=== PATIENT | female | born 1970 | race Caucasian/White ===

== ENCOUNTER 2016-07-10 10:25 | Emergency (ER) | payer OTHER ==
[~2016-07-10] VITALS: Ht 152.4 cm; Wt 100.0 kg
[~2016-07-10 10:25] MED LIST: ASPI-556 PO; GABA-531 PO; GLIM4 PO; LISI-662 PO; METF500T4 PO; METO-325 PO; NITR100C9 PO
[2016-07-10 10:46] LABS: GLUCOSE,POINT OF CARE 198 MG/DL (70-110)
[2016-07-10 11:53] LABS: BASOPHILS % (AUTO) 0.4 % (0.0-2.0); EOSINOPHILS % (AUTO) 0.8 % (1.0-6.0); HEMATOCRIT 43.6 % (36-46); HEMOGLOBIN 14.4 g/dL (12.0-16.0); LYMPHOCYTES # (AUTO) 3.2 K/uL (1.0-4.8); LYMPHOCYTES % (AUTO) 27.4 % (22.0-44.0); MEAN CORPUSCULAR HEMOGLOBIN 28.3 pg (26.0-34.0); MEAN CORPUSCULAR HGB CONC 32.9 G/dL (31.0-37.0); MEAN CORPUSCULAR VOLUME 86 fL (80-100); MONOCYTES # (AUTO) 0.8 K/uL (0.1-1.0); MONOCYTES % (AUTO) 7.2 % (2.0-9.0); NEUTROPHILS # (AUTO) 7.5 K/uL (1.8-7.7); NEUTROPHILS % (AUTO) 64.2 % (40.0-70.0); PLATELET COUNT (AUTO) 409 K/uL (150-450); RED BLOOD CELL COUNT(AUTO) 5.08 MIL/uL (4.00-5.20); RED CELL DISTRIBUTION WIDTH 15.5 % (11.5-14.5); WHITE BLOOD COUNT (AUTO) 11.6 K/uL (4.5-11.0)
[2016-07-10 12:03] LABS: ANION GAP 9 mmol/L (8-16); CALCIUM, TOTAL 9.2 mg/dL (8.8-10.5); CARBON DIOXIDE 26 mmol/L (22-29); CHLORIDE 100 mmol/L (98-107); CREATININE 0.56 mg/dL (0.60-1.30); GLOMERULAR FILTR. RATE CALC > 60 mL/min (>60); SODIUM SERUM 135 mmol/L (136-145); UREA NITROGEN, BLOOD 17 mg/dL (7-18)
[2016-07-10 12:10] LABS: ALANINE AMINOTRANSFERASE 21 U/L (12-78); ALBUMIN 3.2 g/dL (3.4-5.0); AMYLASE 40 U/L (25-115); ASPARTATE AMINOTRANSFERASE 14 U/L (15-37); BILIRUBIN,TOTAL 0.5 mg/dL (0.1-1.0); TOTAL PROTEIN, SERUM 7.5 g/dL (6.4-8.2)
[2016-07-10] MEDS ORDERED: OxyCODONE HCL/ACETAMINOPHEN 5-325 MG TABLET PO ONE ×2 (14:00→18:00)
[2016-07-10] MEDS ORDERED: KETOROLAC TROMETHAMINE 30 MG/ML VIAL IVP ONE (14:00)
[2016-07-10] MEDS ORDERED: SODIUM CHLORIDE 0.9% 1,000 ML IV ONE (15:15)
[2016-07-10] MEDS ORDERED: ONDANSETRON HCL 4 MG/2 ML VIAL IVP ONE (15:15)
[2016-07-10 16:53] VITALS: BP 138/82
[2016-07-10 17:10] LABS: APPEARANCE,URINE CLOUDY (CLEAR); GLUCOSE, URINE (UA) NEGATIVE (NEGATIVE); KETONES,URINE TRACE mg/dL (NEGATIVE); LEUKOCYTE ESTERASE ,URINE MODERATE (NEGATIVE); OCCULT BLOOD,URINE MODERATE (NEGATIVE); PROTEIN,URINE TRACE (NEGATIVE)
[2016-07-10 17:13] LABS: ADD UA MICROSCOPIC YES
[2016-07-10 17:24] LABS: SQUAMOUS EPITHELIAL CELL,UR Many /LPF (None Seen); WBC,URINE 26-50 /HPF (0-5)
== END 2016-07-10 18:08 | disposition home or self-care (01) ==
LOC: EMS 10:27
DX: N39.0 Urinary tract infection, site not specified (principal); N80.0 Endometriosis of uterus; E11.9 Type 2 diabetes mellitus without complications; I10 Essential (primary) hypertension; F17.210 Nicotine dependence, cigarettes, uncomplicated; Z79.82 Long term (current) use of aspirin
CPT/HCPCS: 36415; 76856; 80053; 81001; 82150; 82962; 83690; 84703; 85025; 87077; 87086; 87186; 96361; 96374; 96375; 99285; J1885; J2405; J7030

== ENCOUNTER 2016-08-06 10:30 | Inpatient (IN) | payer OTHER ==
[~2016-08-06] VITALS: Ht 154.9 cm; Wt 112.9 kg
[~2016-08-06 10:30] MED LIST changes: -NITR100C9 PO
[2016-08-06] MEDS ORDERED: DEXAMETHASONE SOD PHOS 4 MG/ML 5 ML VIAL IM ONE (14:30)
[2016-08-06] MEDS ORDERED: INSULIN REGULAR, HUMAN 100 UNITS/ML IVP ONE (14:30)
[2016-08-06] MEDS ORDERED: IPRATROPIUM BROMIDE 0.5 MG/2.5 ML NEB SOLUTION NEB ONE (14:30)
[2016-08-06] MEDS ORDERED: ALBUTEROL SULFATE 5 MG/ML 20 ML NEB SOLN [BULK] NEB ONE (14:30)
[2016-08-06] MEDS ORDERED: SODIUM CHLORIDE 0.9% 1,000 ML IV ONE ×2 (14:30→18:00)
[2016-08-06] MEDS ORDERED: ONDANSETRON HCL 4 MG/2 ML VIAL IVP ONE (14:30)
[2016-08-06] MEDS ORDERED: HYDROCODONE/ACETAMINOPHEN 5-325 MG TABLET PO ONE (14:30)
[2016-08-06] MEDS ORDERED: DEXAMETHASONE SOD PHOS 4 MG/ML 5 ML VIAL IVP ONE (14:30)
[2016-08-06 15:59] LABS: BASOPHILS % (AUTO) 0.4 % (0.0-2.0); HEMATOCRIT 42.8 % (36-46); LYMPHOCYTES # (AUTO) 3.4 K/uL (1.0-4.8); LYMPHOCYTES % (AUTO) 29.6 % (22.0-44.0); MEAN CORPUSCULAR HEMOGLOBIN 28.4 pg (26.0-34.0); MEAN CORPUSCULAR HGB CONC 32.6 G/dL (31.0-37.0); MEAN CORPUSCULAR VOLUME 87 fL (80-100); MONOCYTES % (AUTO) 8.4 % (2.0-9.0); NEUTROPHILS # (AUTO) 6.8 K/uL (1.8-7.7); NEUTROPHILS % (AUTO) 59.6 % (40.0-70.0); PLATELET COUNT (AUTO) 369 K/uL (150-450); RED BLOOD CELL COUNT(AUTO) 4.92 MIL/uL (4.00-5.20); RED CELL DISTRIBUTION WIDTH 15.9 % (11.5-14.5); WHITE BLOOD COUNT (AUTO) 11.4 K/uL (4.5-11.0)
[2016-08-06] MEDS ORDERED: CefTRIAXone 1 GM/DEXTROSE 50 ML IV ONE (16:15)
[2016-08-06] MEDS ORDERED: AZITHROMYCIN 500 MG/NS 250 ML IV ONE (16:15)
[2016-08-06] MEDS ORDERED: MORPHINE SULFATE 4 MG/ML SYRINGE IVP ONE ×2 (16:15→21:00)
[2016-08-06 16:24] LABS: ANION GAP 12 mmol/L (8-16); CALCIUM, TOTAL 8.8 mg/dL (8.8-10.5); CARBON DIOXIDE 25 mmol/L (22-29); CHLORIDE 100 mmol/L (98-107); CREATININE 0.67 mg/dL (0.60-1.30); GLOMERULAR FILTR. RATE CALC > 60 mL/min (>60); POTASSIUM 4.1 mmol/L (3.5-5.1); SODIUM SERUM 137 mmol/L (136-145); UREA NITROGEN, BLOOD 13 mg/dL (7-18)
[2016-08-06 16:26] LABS: GLUCOSE COMMENT 1 Doctor Notified; GLUCOSE,POINT OF CARE 174 MG/DL (70-110)
[2016-08-06 16:27] LABS: APPEARANCE,URINE TURBID (CLEAR); GLUCOSE, URINE (UA) >=1000 mg/dL (NEGATIVE); KETONES,URINE NEGATIVE (NEGATIVE); LEUKOCYTE ESTERASE ,URINE NEGATIVE (NEGATIVE); OCCULT BLOOD,URINE LARGE (NEGATIVE); PH,URINE 5.5 (5.0-8.0); PROTEIN,URINE POS 1+ (NEGATIVE)
[2016-08-06 16:29] LABS: ADD UA MICROSCOPIC YES
[2016-08-06 16:30] LABS: ALANINE AMINOTRANSFERASE 20 U/L (12-78); ALBUMIN 3.1 g/dL (3.4-5.0); ASPARTATE AMINOTRANSFERASE 8 U/L (15-37); BILIRUBIN,TOTAL 0.3 mg/dL (0.1-1.0); TOTAL PROTEIN, SERUM 7.3 g/dL (6.4-8.2)
[2016-08-06 16:35] LABS: SQUAMOUS EPITHELIAL CELL,UR Few /LPF (None Seen)
[2016-08-06 16:37] LABS: RBC,URINE Full Field /HPF (0-2)
[2016-08-06 16:38] LABS: INFLUENZA TYPE B NEGATIVE FOR TYPE B (NEGATIVE)
[2016-08-06] MEDS ORDERED: 0.9% SODIUM CHLORIDE 10 ML SYRINGE IVP PRN (18:00)
[2016-08-06] MEDS ORDERED: ONDANSETRON HCL 4 MG/2 ML VIAL IVP PRN (18:00)
[2016-08-06] MEDS ORDERED: MORPHINE SULFATE 4 MG/ML SYRINGE IVP PRN (18:00)
[2016-08-06] MEDS ORDERED: ACETAMINOPHEN 325 MG TABLET PO PRN (18:00)
[2016-08-07 00:10] VITALS: BP 136/87
[2016-08-07] MEDS ORDERED: PNEUMOCOCCAL VACCINE POLYVALENT 0.5 ML VIAL [PPSV23] IM ONE (01:00)
[2016-08-07] MEDS ORDERED: DEXTROSE 50%-WATER 25 GM/50 ML SYRINGE IVP PRN ×2 (02:00→04:15)
[2016-08-07] MEDS: SODIUM CHLORIDE 0.9% 1,000 ML IV SCH ×2 (04:08→11:56)
[2016-08-07 04:22] VITALS: BP 142/94
[2016-08-07] MEDS: INSULIN ASPART 100 UNITS/ML SQ PRN ×4 (06:20→20:17)
[2016-08-07 06:36] LABS: GLUCOSE COMMENT 1 Received Meds; GLUCOSE,POINT OF CARE 379 MG/DL (70-110)
[2016-08-07 07:43] VITALS: BP 135/84
[2016-08-07] MEDS: LISINOPRIL 20 MG TABLET PO SCH (09:00)
[2016-08-07] MEDS: GABAPENTIN 300 MG CAPSULE PO SCH ×3 (09:00→20:14)
[2016-08-07] MEDS: ASPIRIN 81 MG EC TABLET PO SCH (09:00)
[2016-08-07] MEDS: METOPROLOL SUCCINATE 50 MG ER TABLET PO SCH (09:00)
[2016-08-07 11:37] VITALS: BP 147/84
[2016-08-07 11:57] LABS: GLUCOSE,POINT OF CARE 298 MG/DL (70-110)
[2016-08-07] MEDS: CefTRIAXone 1 GM/DEXTROSE 50 ML IV SCH (15:42)
[2016-08-07] MEDS: AZITHROMYCIN 500 MG/NS 250 ML IV SCH (15:43)
[2016-08-07 15:45] VITALS: BP 129/83
[2016-08-07 18:07] LABS: GLUCOSE COMMENT 1 Received Meds; GLUCOSE,POINT OF CARE 296 MG/DL (70-110)
[2016-08-07 19:46] VITALS: BP 140/98
[2016-08-07 21:57] LABS: GLUCOSE COMMENT 1 Received Meds; GLUCOSE,POINT OF CARE 303 MG/DL (70-110)
[2016-08-08 00:09] VITALS: BP 138/96
[2016-08-08 04:52] VITALS: BP 128/88
[2016-08-08] MEDS: SODIUM CHLORIDE 0.9% 1,000 ML IV SCH ×2 (05:26→09:30)
[2016-08-08] MEDS: INSULIN ASPART 100 UNITS/ML SQ PRN ×4 (05:36→20:29)
[2016-08-08] MEDS: ACETAMINOPHEN 325 MG TABLET PO PRN ×3 (06:01→19:41)
[2016-08-08 07:43] VITALS: BP 100/70
[2016-08-08 08:01] LABS: GLUCOSE COMMENT 1 Received Meds; GLUCOSE,POINT OF CARE 255 MG/DL (70-110)
[2016-08-08] MEDS: METOPROLOL SUCCINATE 50 MG ER TABLET PO SCH (09:29)
[2016-08-08] MEDS: GABAPENTIN 300 MG CAPSULE PO SCH ×3 (09:29→20:28)
[2016-08-08] MEDS: ASPIRIN 81 MG EC TABLET PO SCH (09:29)
[2016-08-08] MEDS: LISINOPRIL 20 MG TABLET PO SCH (09:29)
[2016-08-08 11:59] LABS: GLUCOSE COMMENT 1 Received Meds; GLUCOSE,POINT OF CARE 278 MG/DL (70-110)
[2016-08-08 13:03] VITALS: BP 152/96
[2016-08-08 16:30] VITALS: BP 149/94
[2016-08-08] MEDS: CefTRIAXone 1 GM/DEXTROSE 50 ML IV SCH (16:53)
[2016-08-08] MEDS: AZITHROMYCIN 500 MG/NS 250 ML IV SCH (16:53)
[2016-08-08 17:13] LABS: GLUCOSE COMMENT 1 Received Meds; GLUCOSE,POINT OF CARE 240 MG/DL (70-110)
[2016-08-08 20:04] VITALS: BP 124/77
[2016-08-08] MEDS ORDERED: OxyCODONE HCL/ACETAMINOPHEN 5-325 MG TABLET PO PRN (20:15)
[2016-08-08 21:21] LABS: GLUCOSE COMMENT 1 Received Meds; GLUCOSE,POINT OF CARE 268 MG/DL (70-110)
[2016-08-09 00:18] VITALS: BP 129/75
[2016-08-09] MEDS: SODIUM CHLORIDE 0.9% 1,000 ML IV SCH (02:16)
[2016-08-09 05:13] VITALS: BP 139/84
[2016-08-09] MEDS: INSULIN ASPART 100 UNITS/ML SQ PRN ×2 (05:37→12:28)
[2016-08-09 06:31] LABS: GLUCOSE COMMENT 1 Received Meds; GLUCOSE,POINT OF CARE 262 MG/DL (70-110)
[2016-08-09 07:55] VITALS: BP 137/74
[2016-08-09] MEDS: LISINOPRIL 20 MG TABLET PO SCH (09:30)
[2016-08-09] MEDS: GABAPENTIN 300 MG CAPSULE PO SCH (09:30)
[2016-08-09] MEDS: ASPIRIN 81 MG EC TABLET PO SCH (09:30)
[2016-08-09] MEDS: METOPROLOL SUCCINATE 50 MG ER TABLET PO SCH (09:31)
[2016-08-09 12:17] LABS: GLUCOSE,POINT OF CARE 269 MG/DL (70-110)
[2016-08-09] MEDS ORDERED: CEFO1I IM (13:37)
== END 2016-08-09 14:30 | disposition home or self-care (01) | DRG 871 ==
LOC: EMS 10:32 → 6N 22:00
PROVIDERS: ADMIT Internal Medicine; ATTEND Internal Medicine
PROC: 3E0234Z Introduction of Serum, Toxoid and Vaccine into Muscle, Percutaneous Approach (ICD-10-PCS; principal; 2016-08-07)
DX: A41.9 Sepsis, unspecified organism (principal); J18.9 Pneumonia, unspecified organism; E43 Unspecified severe protein-calorie malnutrition; N39.0 Urinary tract infection, site not specified; Z68.42 Body mass index [BMI] 45.0-49.9, adult; N20.0 Calculus of kidney; E66.9 Obesity, unspecified; E11.42 Type 2 diabetes mellitus with diabetic polyneuropathy; R31.9 Hematuria, unspecified; E11.65 Type 2 diabetes mellitus with hyperglycemia; B96.89 Other specified bacterial agents as the cause of diseases classified elsewhere; F17.210 Nicotine dependence, cigarettes, uncomplicated; E88.09 Other disorders of plasma-protein metabolism, not elsewhere classified; I10 Essential (primary) hypertension; Z79.84 Long term (current) use of oral hypoglycemic drugs; Z87.442 Personal history of urinary calculi; Z79.82 Long term (current) use of aspirin; Z79.899 Other long term (current) drug therapy; Z87.440 Personal history of urinary (tract) infections; Z82.49 Family history of ischemic heart disease and other diseases of the circulatory system; Z83.3 Family history of diabetes mellitus; Z71.6 Tobacco abuse counseling; Z23 Encounter for immunization
CPT/HCPCS: 74176; 82948; 82962; 87040; 87086; 87804; 90471; 94644; 96365; 96368; 96375; 96376; 99285; 99406; J0456; J0696; J1100; J1815; J2270; J2405; J7030

== ENCOUNTER 2017-05-07 21:19 | Emergency (ER) | payer SELFPAY ==
[~2017-05-07] VITALS: Ht 152.4 cm; Wt 102.5 kg
[~2017-05-07 21:19] MED LIST changes: +CEFO1I IM; -METO-325 PO; +METO-558 PO
[2017-05-07 21:48] LABS: GLUCOSE,POINT OF CARE 257 MG/DL (70-110)
[2017-05-07] MEDS ORDERED: CEPHALEXIN MONOHYDRATE 500 MG CAPSULE PO ONE (23:30)
[2017-05-07] MEDS ORDERED: SULFAMETHOX/TRIMETH DS 800-160 MG/TABLET PO ONE (23:30)
[2017-05-07] MEDS ORDERED: LIDOCAINE HCL 1% 10 ML VIAL INJ ONE (23:30)
[2017-05-08] VITALS: BP 131/82
== END 2017-05-08 00:24 | disposition home or self-care (01) ==
LOC: EMS 21:22
DX: L02.31 Cutaneous abscess of buttock (principal); E11.9 Type 2 diabetes mellitus without complications; I10 Essential (primary) hypertension; F17.210 Nicotine dependence, cigarettes, uncomplicated
CPT/HCPCS: 10060; 82962; 99283; J3490

== ENCOUNTER 2020-09-20 15:50 | Inpatient (IN) | payer OTHER ==
[~2020-09-20] VITALS: Ht 165.1 cm; Wt 130.7 kg
[~2020-09-20 15:50] MED LIST changes: -CEFO1I IM; +GABA-1181 PO; -GABA-531 PO; -LISI-662 PO; +LISI-894 PO; +METF-960 PO; -METF500T4 PO
[2020-09-20] MEDS ORDERED: INSU100V SQ (16:00)
[2020-09-20] MEDS ORDERED: LISI-894 PO (16:00)
[2020-09-20] MEDS ORDERED: DULA0.75 SQ (16:00)
[2020-09-20] MEDS ORDERED: GABA-1201 PO (16:00)
[2020-09-20] MEDS ORDERED: INSLAN SQ (16:00)
[2020-09-20] MEDS ORDERED: ATOR40TA28 PO (16:00)
[2020-09-20 17:44] LABS: BASOPHILS % (AUTO) 0.3 % (0.0-2.0); EOSINOPHILS % (AUTO) 0.7 % (1.0-6.0); HEMATOCRIT 42.1 % (36-46); HEMOGLOBIN 13.5 g/dL (12.0-16.0); LYMPHOCYTES # (AUTO) 1.9 K/uL (1.0-4.8); LYMPHOCYTES % (AUTO) 24.1 % (22.0-44.0); MEAN CORPUSCULAR HEMOGLOBIN 25.9 pg (26.0-34.0); MEAN CORPUSCULAR HGB CONC 32.2 G/dL (31.0-37.0); MEAN CORPUSCULAR VOLUME 81 fL (80-100); MONOCYTES # (AUTO) 0.7 K/uL (0.1-1.0); MONOCYTES % (AUTO) 8.6 % (2.0-9.0); NEUTROPHILS # (AUTO) 5.2 K/uL (1.8-7.7); NEUTROPHILS % (AUTO) 66.3 % (40.0-70.0); PLATELET COUNT (AUTO) 344 K/uL (150-450); RED BLOOD CELL COUNT(AUTO) 5.22 MIL/uL (4.00-5.20); RED CELL DISTRIBUTION WIDTH 18.2 % (11.5-14.5)
[2020-09-20 18:02] LABS: ALANINE AMINOTRANSFERASE 23 U/L (12-78); ALBUMIN 2.9 g/dL (3.4-5.0); ALKALINE PHOSPHATASE 113 U/L (46-116); ASPARTATE AMINOTRANSFERASE 13 U/L (15-37); BILIRUBIN,TOTAL 0.3 mg/dL (0.1-1.0); CALCIUM, TOTAL 9.2 mg/dL (8.8-10.5); GLOMERULAR FILTR. RATE CALC 58 mL/min (>60); GLUCOSE,RANDOM 399 mg/dL (70-110); LIPASE 481 U/L (73-393); TOTAL PROTEIN, SERUM 7.3 g/dL (6.4-8.2); UREA NITROGEN, BLOOD 17 mg/dL (7-18)
[2020-09-20 18:19] LABS: ACETONE,BLOOD NEGATIVE (NEGATIVE); ANION GAP 10 mmol/L (8-16); CARBON DIOXIDE 24 mmol/L (22-29); CHLORIDE 100 mmol/L (98-107); POTASSIUM 4.1 mmol/L (3.5-5.1); SODIUM SERUM 134 mmol/L (136-145)
[2020-09-20 18:23] LABS: LACTIC ACID 2.1 mmol/L (0.4-2.0)
[2020-09-20] MEDS ORDERED: KETOROLAC TROMETHAMINE 30 MG/ML VIAL IVP ONE (19:00)
[2020-09-20] MEDS ORDERED: SODIUM CHLORIDE 0.9% 1,000 ML IV ONE ×2 (19:00→20:30)
[2020-09-20] MEDS ORDERED: HYDROmorphone 2 MG/ML VIAL IVP ONE (19:00)
[2020-09-20] MEDS ORDERED: ONDANSETRON HCL 4 MG/2 ML VIAL IVP ONE (19:00)
[2020-09-20] MEDS ORDERED: SODIUM CHLORIDE 0.9% 2,000 ML IV ONE (20:30)
[2020-09-20] MEDS ORDERED: CefTRIAXone 1 GM/DEXTROSE 50 ML IV SCH (20:30)
[2020-09-20] MEDS ORDERED: DEXTROSE 50%-WATER 25 GM/50 ML SYRINGE IVP PRN (20:30)
[2020-09-20] MEDS ORDERED: INSULIN GLARGINE,HUM.REC.ANLOG 100 UNITS/ML SQ SCH (21:00)
[2020-09-20] MEDS: PIPERACILLIN/TAZO 3.375 GM/D5W 50 ML IV SCH (21:14)
[2020-09-20 21:26] LABS: COVID AG,FIA SOURCE NASOPHARYNGEAL
[2020-09-20 21:39] LABS: CHOL/HDL RATIO 4.5 (3.9-5.7)
[2020-09-20] MEDS: MORPHINE SULFATE 2 MG/ML SYRINGE IVP PRN (21:50)
[2020-09-20] MEDS: RINGERS SOLUTION,LACTATED 1,000 ML IV SCH (22:04)
[2020-09-20 22:28] LABS: APPEARANCE,URINE CLOUDY (CLEAR); BILIRUBIN,URINE NEGATIVE (NEGATIVE); GLUCOSE, URINE (UA) >=1000 mg/dL (NEGATIVE); KETONES,URINE NEGATIVE (NEGATIVE); LEUKOCYTE ESTERASE ,URINE TRACE (NEGATIVE); NITRATE,URINE POSITIVE (NEGATIVE); OCCULT BLOOD,URINE TRACE (NEGATIVE); PROTEIN,URINE POS 1+ (NEGATIVE)
[2020-09-20 22:52] LABS: RBC,URINE 0-2 /HPF (0-2); WBC,URINE 26-50 /HPF (0-5)
[2020-09-20 22:53] LABS: BACTERIA,URINE Many /HPF (None Seen)
[2020-09-20 23:30] VITALS: BP 100/57
[2020-09-20] MEDS: HEPARIN SODIUM,PORCINE 5,000 UNITS/ML VIAL SQ SCH (23:40)
[2020-09-20] MEDS: GABAPENTIN 400 MG CAPSULE PO SCH (23:40)
[2020-09-21 02:10] LABS: GLUCOMETER DEV NAME(LOC) 5S.1; GLUCOSE,POINT OF CARE 192 MG/DL (70-110)
[2020-09-21] MEDS ORDERED: SODIUM CHLORIDE 0.9% 250 ML IV ONE (03:44)
[2020-09-21] MEDS: PIPERACILLIN/TAZO 3.375 GM/D5W 50 ML IV SCH ×4 (03:48→21:45)
[2020-09-21 04:03] VITALS: BP 129/70
[2020-09-21] MEDS: MORPHINE SULFATE 2 MG/ML SYRINGE IVP PRN ×3 (04:12→15:40)
[2020-09-21] MEDS: INSULIN LISPRO 100 UNITS/ML SQ PRN ×4 (05:51→21:46)
[2020-09-21 07:55] VITALS: BP 101/67
[2020-09-21] MEDS: ATORVASTATIN CALCIUM 40 MG TABLET PO SCH (07:55)
[2020-09-21] MEDS: HEPARIN SODIUM,PORCINE 5,000 UNITS/ML VIAL SQ SCH ×2 (07:55→15:30)
[2020-09-21] MEDS: GABAPENTIN 400 MG CAPSULE PO SCH ×3 (07:55→21:45)
[2020-09-21] MEDS: RINGERS SOLUTION,LACTATED 1,000 ML IV SCH ×2 (11:12→22:03)
[2020-09-21 12:09] VITALS: BP 98/53
[2020-09-21 13:20] LABS: GLUCOMETER DEV NAME(LOC) 5N.3; GLUCOSE,POINT OF CARE 260 MG/DL (70-110)
[2020-09-21 14:50] LABS: GLUCOMETER DEV NAME(LOC) 5S.1; GLUCOSE,POINT OF CARE 304 MG/DL (70-110)
[2020-09-21 15:20] VITALS: BP 124/80
[2020-09-21 19:08] VITALS: BP 127/52
[2020-09-21 21:03] LABS: GLUCOMETER DEV NAME(LOC) 6S.1; GLUCOSE,POINT OF CARE 186 MG/DL (70-110)
[2020-09-21] MEDS: INSULIN GLARGINE,HUM.REC.ANLOG 100 UNITS/ML SQ SCH (21:47)
[2020-09-21] MEDS: BISACODYL 5 MG EC TABLET PO SCH (23:27)
[2020-09-21] MEDS: POLYETHYLENE GLYCOL 3350 17 GM PACKET PO SCH (23:27)
[2020-09-21 23:35] VITALS: BP 134/88
[2020-09-22] MEDS: HEPARIN SODIUM,PORCINE 5,000 UNITS/ML VIAL SQ SCH ×4 (00:08→23:42)
[2020-09-22] MEDS: ONDANSETRON HCL 4 MG/2 ML VIAL IVP PRN ×4 (01:16→23:42)
[2020-09-22] MEDS: PIPERACILLIN/TAZO 3.375 GM/D5W 50 ML IV SCH ×4 (02:35→20:44)
[2020-09-22] MEDS: ACETAMINOPHEN 325 MG TABLET PO PRN (02:35)
[2020-09-22 04:16] VITALS: BP 119/72
[2020-09-22] MEDS: INSULIN LISPRO 100 UNITS/ML SQ PRN ×2 (06:31→20:59)
[2020-09-22] MEDS: RINGERS SOLUTION,LACTATED 1,000 ML IV SCH ×2 (06:33→17:09)
[2020-09-22 06:43] LABS: GLUCOMETER DEV NAME(LOC) 5N.3; GLUCOSE,POINT OF CARE 185 MG/DL (70-110)
[2020-09-22 07:45] LABS: GLUCOMETER DEV NAME(LOC) 6S.1; GLUCOSE,POINT OF CARE 179 MG/DL (70-110)
[2020-09-22] MEDS ORDERED: MINERAL OIL 133 ML ENEMA PR ONE (08:00)
[2020-09-22 08:05] VITALS: BP 115/79
[2020-09-22] MEDS: ATORVASTATIN CALCIUM 40 MG TABLET PO SCH (08:37)
[2020-09-22] MEDS: GABAPENTIN 400 MG CAPSULE PO SCH ×4 (08:37→20:44)
[2020-09-22] MEDS: POLYETHYLENE GLYCOL 3350 17 GM PACKET PO SCH ×3 (08:38→20:44)
[2020-09-22] MEDS: BISACODYL 5 MG EC TABLET PO SCH ×2 (08:38→20:44)
[2020-09-22 08:48] LABS: BASOPHILS % (AUTO) 0.5 % (0.0-2.0); EOSINOPHILS % (AUTO) 0.2 % (1.0-6.0); HEMATOCRIT 39.7 % (36-46); HEMOGLOBIN 12.7 g/dL (12.0-16.0); LYMPHOCYTES # (AUTO) 1.3 K/uL (1.0-4.8); LYMPHOCYTES % (AUTO) 15.5 % (22.0-44.0); MEAN CORPUSCULAR HEMOGLOBIN 25.5 pg (26.0-34.0); MEAN CORPUSCULAR HGB CONC 32.1 G/dL (31.0-37.0); MEAN CORPUSCULAR VOLUME 80 fL (80-100); MONOCYTES # (AUTO) 0.6 K/uL (0.1-1.0); MONOCYTES % (AUTO) 6.6 % (2.0-9.0); NEUTROPHILS # (AUTO) 6.6 K/uL (1.8-7.7); NEUTROPHILS % (AUTO) 77.2 % (40.0-70.0); PLATELET COUNT (AUTO) 298 K/uL (150-450); RED BLOOD CELL COUNT(AUTO) 4.99 MIL/uL (4.00-5.20); RED CELL DISTRIBUTION WIDTH 17.6 % (11.5-14.5)
[2020-09-22 09:02] LABS: ANION GAP 5 mmol/L (8-16); CALCIUM, TOTAL 8.9 mg/dL (8.8-10.5); CARBON DIOXIDE 28 mmol/L (22-29); CHLORIDE 101 mmol/L (98-107); CREATININE 0.72 mg/dL (0.60-1.30); GLOMERULAR FILTR. RATE CALC > 60 mL/min (>60); GLUCOSE,RANDOM 187 mg/dL (70-110); LIPASE 93 U/L (73-393); POTASSIUM 4.3 mmol/L (3.5-5.1); SODIUM SERUM 134 mmol/L (136-145); UREA NITROGEN, BLOOD 14 mg/dL (7-18)
[2020-09-22 12:21] VITALS: BP 149/114
[2020-09-22 12:22] LABS: GLUCOMETER DEV NAME(LOC) 6S.1; GLUCOSE,POINT OF CARE 197 MG/DL (70-110)
[2020-09-22] MEDS ORDERED: METOCLOPRAMIDE HCL 5 MG/ML 2 ML VIAL IVP ONE (12:30)
[2020-09-22 12:47] VITALS: BP 137/63
[2020-09-22 15:44] VITALS: BP 156/75
[2020-09-22 17:33] LABS: GLUCOMETER DEV NAME(LOC) 6S.1; GLUCOSE,POINT OF CARE 205 MG/DL (70-110)
[2020-09-22 20:00] VITALS: BP 137/91
[2020-09-22] MEDS: INSULIN GLARGINE,HUM.REC.ANLOG 100 UNITS/ML SQ SCH (20:58)
[2020-09-22] MEDS: MORPHINE SULFATE 2 MG/ML SYRINGE IVP PRN (23:55)
[2020-09-23 00:47] VITALS: BP 134/88
[2020-09-23] MEDS: ACETAMINOPHEN 325 MG TABLET PO PRN ×3 (01:09→21:34)
[2020-09-23] MEDS: RINGERS SOLUTION,LACTATED 1,000 ML IV SCH (02:58)
[2020-09-23] MEDS: PIPERACILLIN/TAZO 3.375 GM/D5W 50 ML IV SCH ×4 (02:58→21:38)
[2020-09-23 04:00] VITALS: BP 144/88
[2020-09-23] MEDS: MORPHINE SULFATE 2 MG/ML SYRINGE IVP PRN (04:19)
[2020-09-23] MEDS: INSULIN LISPRO 100 UNITS/ML SQ PRN ×4 (06:03→21:39)
[2020-09-23 06:05] LABS: GLUCOMETER DEV NAME(LOC) 6S.1; GLUCOSE,POINT OF CARE 197 MG/DL (70-110)
[2020-09-23] MEDS: ONDANSETRON HCL 4 MG/2 ML VIAL IVP PRN (06:34)
[2020-09-23 07:43] VITALS: BP 144/76
[2020-09-23] MEDS ORDERED: SODIUM CHLORIDE 0.9% 500 ML IV ONE (08:32)
[2020-09-23] MEDS: HEPARIN SODIUM,PORCINE 5,000 UNITS/ML VIAL SQ SCH ×3 (08:44→23:47)
[2020-09-23] MEDS: ATORVASTATIN CALCIUM 40 MG TABLET PO SCH (08:44)
[2020-09-23] MEDS: GABAPENTIN 400 MG CAPSULE PO SCH ×3 (08:44→21:35)
[2020-09-23] MEDS: POLYETHYLENE GLYCOL 3350 17 GM PACKET PO SCH (08:45)
[2020-09-23] MEDS: BISACODYL 5 MG EC TABLET PO SCH (09:00)
[2020-09-23 10:15] LABS: GLUCOMETER DEV NAME(LOC) 6N.1; GLUCOSE,POINT OF CARE 199 MG/DL (70-110)
[2020-09-23] MEDS ORDERED: ONDANSETRON HCL 4 MG/2 ML VIAL IVP PRN (12:30)
[2020-09-23] MEDS ORDERED: METO5TAB95 PO (12:38)
[2020-09-23] MEDS ORDERED: CEPH500C3 PO (12:38)
[2020-09-23 15:24] VITALS: BP 147/73
[2020-09-23] MEDS: METOCLOPRAMIDE HCL 5 MG/ML 2 ML VIAL IVP SCH ×2 (15:31→21:37)
[2020-09-23 17:02] LABS: GLUCOMETER DEV NAME(LOC) 6N.1; GLUCOSE,POINT OF CARE 149 MG/DL (70-110)
[2020-09-23] MEDS ORDERED: DOCUSATE SODIUM 100 MG CAPSULE PO PRN (18:15)
[2020-09-23 20:42] VITALS: BP 150/93
[2020-09-23] MEDS: INSULIN GLARGINE,HUM.REC.ANLOG 100 UNITS/ML SQ SCH (21:38)
[2020-09-23 22:08] LABS: GLUCOMETER DEV NAME(LOC) 6S.1; GLUCOSE,POINT OF CARE 201 MG/DL (70-110)
[2020-09-23 22:08] LABS: GLUCOMETER DEV NAME(LOC) 6S.1; GLUCOSE,POINT OF CARE 178 MG/DL (70-110)
[2020-09-23 23:48] VITALS: BP 162/72
[2020-09-24] MEDS: PIPERACILLIN/TAZO 3.375 GM/D5W 50 ML IV SCH ×2 (02:43→08:25)
[2020-09-24] MEDS: MORPHINE SULFATE 2 MG/ML SYRINGE IVP PRN (03:32)
[2020-09-24 04:40] VITALS: BP 136/74
[2020-09-24] MEDS: INSULIN LISPRO 100 UNITS/ML SQ PRN (05:43)
[2020-09-24 06:07] LABS: GLUCOMETER DEV NAME(LOC) 6N.1; GLUCOSE,POINT OF CARE 166 MG/DL (70-110)
[2020-09-24 08:11] VITALS: BP 137/75
[2020-09-24] MEDS: HEPARIN SODIUM,PORCINE 5,000 UNITS/ML VIAL SQ SCH (08:22)
[2020-09-24] MEDS: METOCLOPRAMIDE HCL 5 MG/ML 2 ML VIAL IVP SCH (08:24)
[2020-09-24] MEDS: ATORVASTATIN CALCIUM 40 MG TABLET PO SCH (08:25)
[2020-09-24] MEDS: GABAPENTIN 400 MG CAPSULE PO SCH (08:25)
== END 2020-09-24 11:45 | disposition home or self-care (01) | DRG 871 ==
LOC: EMS 15:50 → 5S 22:00 → 5N 22:36 → 6N 09-21 18:35
PROVIDERS: ADMIT Internal Medicine; ATTEND Internal Medicine
DX: A41.9 Sepsis, unspecified organism (principal); K85.90 Acute pancreatitis without necrosis or infection, unspecified; N10 Acute pyelonephritis; Z68.42 Body mass index [BMI] 45.0-49.9, adult; E11.65 Type 2 diabetes mellitus with hyperglycemia; E11.43 Type 2 diabetes mellitus with diabetic autonomic (poly)neuropathy; K59.00 Constipation, unspecified; B96.20 Unspecified Escherichia coli [E. coli] as the cause of diseases classified elsewhere; K31.84 Gastroparesis; I10 Essential (primary) hypertension; E78.00 Pure hypercholesterolemia, unspecified; F17.210 Nicotine dependence, cigarettes, uncomplicated; E66.01 Morbid (severe) obesity due to excess calories; Z20.822 Contact with and (suspected) exposure to COVID-19; Z79.4 Long term (current) use of insulin; Z90.49 Acquired absence of other specified parts of digestive tract; Z83.3 Family history of diabetes mellitus; Z79.899 Other long term (current) drug therapy; Z82.49 Family history of ischemic heart disease and other diseases of the circulatory system; Z87.442 Personal history of urinary calculi
CPT/HCPCS: 74019; 74176; 83605; 87040; 87086; 87426; 93005; 99285; J1170; J1644; J1815; J1885; J2270; J2405; J2543; J2765; J7030; J7040; J7050; J7120; 36415-L1; 36415-TC; 71045-TC; 80061-TC; U0003

== ENCOUNTER 2020-12-14 20:38 | Inpatient (IN) | payer OTHER ==
[~2020-12-14] VITALS: Ht 165.1 cm; Wt 127.3 kg
[~2020-12-14 20:38] MED LIST changes: -ASPI-556 PO; +ATOR40TA28 PO; +CEPH500C3 PO; +DULA0.75 SQ; -GABA-1181 PO; +GABA-1201 PO; -GLIM4 PO; +INSLAN SQ; +INSU100V SQ; -METF-960 PO; -METO-558 PO; +METO5TAB95 PO
[2020-12-14 21:01] LABS: GLUCOSE,POINT OF CARE > 600 MG/DL (70-110)
[2020-12-14 22:07] LABS: APPEARANCE,URINE CLEAR (CLEAR); BILIRUBIN,URINE NEGATIVE (NEGATIVE); GLUCOSE, URINE (UA) >=1000 mg/dL (NEGATIVE); KETONES,URINE NEGATIVE (NEGATIVE); LEUKOCYTE ESTERASE ,URINE NEGATIVE (NEGATIVE); NITRATE,URINE NEGATIVE (NEGATIVE); OCCULT BLOOD,URINE TRACE (NEGATIVE); PROTEIN,URINE NEGATIVE (NEGATIVE); UROBILINOGEN,URINE 0.2 mg/dL (<=1.0)
[2020-12-14 22:08] LABS: BASOPHILS % (AUTO) 0.4 % (0.0-2.0); EOSINOPHILS % (AUTO) 0.5 % (1.0-6.0); HEMATOCRIT 42.1 % (36-46); HEMOGLOBIN 13.4 g/dL (12.0-16.0); LYMPHOCYTES % (AUTO) 17.2 % (22.0-44.0); MEAN CORPUSCULAR HEMOGLOBIN 27.5 pg (26.0-34.0); MEAN CORPUSCULAR HGB CONC 31.8 G/dL (31.0-37.0); MEAN CORPUSCULAR VOLUME 86 fL (80-100); MONOCYTES # (AUTO) 0.7 K/uL (0.1-1.0); MONOCYTES % (AUTO) 6.3 % (2.0-9.0); NEUTROPHILS # (AUTO) 8.8 K/uL (1.8-7.7); NEUTROPHILS % (AUTO) 75.6 % (40.0-70.0); PLATELET COUNT (AUTO) 344 K/uL (150-450); RED BLOOD CELL COUNT(AUTO) 4.87 MIL/uL (4.00-5.20)
[2020-12-14 22:22] LABS: ALBUMIN 2.6 g/dL (3.4-5.0); BILIRUBIN,TOTAL 0.4 mg/dL (0.1-1.0); CALCIUM, TOTAL 8.7 mg/dL (8.8-10.5); CREATININE 2.01 mg/dL (0.60-1.30); POTASSIUM 4.5 mmol/L (3.5-5.1); TOTAL PROTEIN, SERUM 7.1 g/dL (6.4-8.2)
[2020-12-14 22:38] LABS: BACTERIA,URINE None Seen /HPF (None Seen); RBC,URINE 0-2 /HPF (0-2)
[2020-12-14] MEDS ORDERED: INSULIN REGULAR, HUMAN 100 UNITS/ML IVP ONE (23:00)
[2020-12-14] MEDS ORDERED: SODIUM CHLORIDE 0.9% 3,800 ML IV ONE (23:00)
[2020-12-14] MEDS ORDERED: ACETAMINOPHEN 325 MG TABLET PO PRN (23:00)
[2020-12-14] MEDS ORDERED: 0.9% SODIUM CHLORIDE 10 ML SYRINGE IVP PRN (23:00)
[2020-12-14] MEDS ORDERED: ONDANSETRON HCL 4 MG/2 ML VIAL IVP PRN (23:00)
[2020-12-14 23:35] LABS: COVID AG,FIA SOURCE NASOPHARYNGEAL
[2020-12-14 23:42] LABS: ABG A-A DIFF O2 25.6 mmHg (10-20.0); ABG BASE EXCESS 2.2 mmol/L (-2.0-3.0); ABG CARBOXYHEMOGLOBIN 4.1 % (0.0-1.5); ABG HCO3 25.4 mmol/L (22.0-26.0); ABG METHEMOGLOBIN 0.2 % (0.0-1.5); ABG OXYGEN CONTENT 16.4 mL/dL (15.0-23.0); ABG OXYGEN SATURATION 89.6 % (95.0-98.0); ABG OXYHEMOGLOBIN 85.7 % (94.0-100.0); ABG PCO2 53 mmHg (35-45); ABG PH 7.342 (7.35-7.450); ABG TOTAL HEMOGLOBIN 13.6 G/dL (12.0-18.0); O2 DEVICE,BLOOD GAS ROOM AIR (ROOM AIR); SITE, BLOOD GAS RT RADIAL; SOURCE, BLOOD GAS ARTERIAL; TEMPERATURE, FAHRENHEIT, BG 98.6 FAHREN (96.0-98.6)
[2020-12-15 00:27] LABS: GLUCOMETER DEV NAME(LOC) ERT.5; GLUCOSE,POINT OF CARE > 600 MG/DL (70-110)
[2020-12-15] MEDS ORDERED: INSULIN REGULAR, HUMAN 100 UNITS/ML IVP ONE (01:00)
[2020-12-15] MEDS ORDERED: INSULIN GLARGINE,HUM.REC.ANLOG 100 UNITS/ML SQ ONE (01:00)
[2020-12-15] MEDS ORDERED: DEXTROSE 50%-WATER 25 GM/50 ML SYRINGE IVP PRN (01:30)
[2020-12-15] MEDS ORDERED: RINGERS SOLUTION,LACTATED 1,000 ML IV ONE (01:30)
[2020-12-15 02:00] LABS: CALCIUM, TOTAL 8.2 mg/dL (8.8-10.5); CREATININE 1.65 mg/dL (0.60-1.30); POTASSIUM 3.8 mmol/L (3.5-5.1)
[2020-12-15 02:13] LABS: GLUCOMETER DEV NAME(LOC) ERT.5; GLUCOSE,POINT OF CARE 443 MG/DL (70-110)
[2020-12-15] MEDS: RINGERS SOLUTION,LACTATED 1,000 ML IV SCH ×3 (02:38→17:48)
[2020-12-15 03:53] LABS: GLUCOMETER DEV NAME(LOC) ERT.5; GLUCOSE,POINT OF CARE 401 MG/DL (70-110)
[2020-12-15] MEDS ORDERED: MORPHINE SULFATE 2 MG/ML SYRINGE IVP ONE (04:00)
[2020-12-15] MEDS: INSULIN LISPRO 100 UNITS/ML SQ PRN ×5 (04:06→20:52)
[2020-12-15 05:45] LABS: CREATININE,URINE RANDOM 48.5 mg/dL (30.0-125.0)
[2020-12-15 07:21] LABS: GLUCOMETER DEV NAME(LOC) ERT.5; GLUCOSE,POINT OF CARE 350 MG/DL (70-110)
[2020-12-15 08:12] LABS: BASOPHILS % (AUTO) 0.4 % (0.0-2.0); EOSINOPHILS % (AUTO) 0.9 % (1.0-6.0); HEMATOCRIT 40.9 % (36-46); HEMOGLOBIN 13.2 g/dL (12.0-16.0); LYMPHOCYTES # (AUTO) 2.1 K/uL (1.0-4.8); LYMPHOCYTES % (AUTO) 21.5 % (22.0-44.0); MEAN CORPUSCULAR HEMOGLOBIN 27.2 pg (26.0-34.0); MEAN CORPUSCULAR HGB CONC 32.2 G/dL (31.0-37.0); MEAN CORPUSCULAR VOLUME 85 fL (80-100); MONOCYTES # (AUTO) 0.7 K/uL (0.1-1.0); NEUTROPHILS # (AUTO) 6.7 K/uL (1.8-7.7); NEUTROPHILS % (AUTO) 70.2 % (40.0-70.0); PLATELET COUNT (AUTO) 282 K/uL (150-450); RED BLOOD CELL COUNT(AUTO) 4.84 MIL/uL (4.00-5.20); RED CELL DISTRIBUTION WIDTH 19.7 % (11.5-14.5)
[2020-12-15 08:27] LABS: ALBUMIN 2.6 g/dL (3.4-5.0); BILIRUBIN,TOTAL 0.3 mg/dL (0.1-1.0); CALCIUM, TOTAL 8.2 mg/dL (8.8-10.5); CREATININE 1.11 mg/dL (0.60-1.30); POTASSIUM 4.3 mmol/L (3.5-5.1); TOTAL PROTEIN, SERUM 6.6 g/dL (6.4-8.2)
[2020-12-15] MEDS: ATORVASTATIN CALCIUM 40 MG TABLET PO SCH (08:36)
[2020-12-15] MEDS: METOCLOPRAMIDE HCL 5 MG TABLET PO SCH ×3 (08:36→20:58)
[2020-12-15] MEDS: INSULIN GLARGINE,HUM.REC.ANLOG 100 UNITS/ML SQ SCH ×2 (08:37→20:53)
[2020-12-15] MEDS: GABAPENTIN 400 MG CAPSULE PO SCH ×3 (09:01→20:58)
[2020-12-15 13:30] LABS: GLUCOMETER DEV NAME(LOC) ERT.5; GLUCOSE,POINT OF CARE 287 MG/DL (70-110)
[2020-12-15 13:30] LABS: GLUCOMETER DEV NAME(LOC) ERT.5; GLUCOSE,POINT OF CARE 346 MG/DL (70-110)
[2020-12-15 14:35] LABS: GLUCOMETER DEV NAME(LOC) ERT.5; GLUCOSE,POINT OF CARE 340 MG/DL (70-110)
[2020-12-15 15:58] LABS: GLUCOMETER DEV NAME(LOC) ERT.5; GLUCOSE,POINT OF CARE 283 MG/DL (70-110)
[2020-12-15] MEDS: HEPARIN SODIUM,PORCINE 5,000 UNITS/ML VIAL SQ SCH ×2 (16:13→23:28)
[2020-12-15 18:12] LABS: GLUCOMETER DEV NAME(LOC) ERT.5; GLUCOSE,POINT OF CARE 271 MG/DL (70-110)
[2020-12-15 19:40] VITALS: BP 129/77
[2020-12-15 23:40] VITALS: BP 126/63
[2020-12-16 04:58] VITALS: BP 122/68
[2020-12-16] MEDS: INSULIN LISPRO 100 UNITS/ML SQ PRN ×2 (06:00→11:41)
[2020-12-16 06:35] LABS: GLUCOMETER DEV NAME(LOC) 6S.1; GLUCOSE,POINT OF CARE 382 MG/DL (70-110)
[2020-12-16 06:35] LABS: GLUCOMETER DEV NAME(LOC) 6S.1; GLUCOSE,POINT OF CARE 261 MG/DL (70-110)
[2020-12-16 08:18] VITALS: BP 135/74
[2020-12-16] MEDS: GABAPENTIN 400 MG CAPSULE PO SCH (08:48)
[2020-12-16] MEDS: METOCLOPRAMIDE HCL 5 MG TABLET PO SCH (08:48)
[2020-12-16] MEDS: HEPARIN SODIUM,PORCINE 5,000 UNITS/ML VIAL SQ SCH (08:48)
[2020-12-16] MEDS: ATORVASTATIN CALCIUM 40 MG TABLET PO SCH (08:48)
[2020-12-16] MEDS: RINGERS SOLUTION,LACTATED 1,000 ML IV SCH (08:49)
[2020-12-16] MEDS: INSULIN GLARGINE,HUM.REC.ANLOG 100 UNITS/ML SQ SCH (09:04)
[2020-12-16 12:58] LABS: GLUCOMETER DEV NAME(LOC) 6N.1; GLUCOSE,POINT OF CARE 320 MG/DL (70-110)
== END 2020-12-16 15:00 | disposition home or self-care (01) | DRG 638 ==
LOC: EMS 20:39 → 6N 12-15 18:24
PROVIDERS: ADMIT Internal Medicine; ATTEND Internal Medicine
DX: E11.65 Type 2 diabetes mellitus with hyperglycemia (principal); Z68.42 Body mass index [BMI] 45.0-49.9, adult; N17.9 Acute kidney failure, unspecified; E11.649 Type 2 diabetes mellitus with hypoglycemia without coma; E66.01 Morbid (severe) obesity due to excess calories; F17.210 Nicotine dependence, cigarettes, uncomplicated; I10 Essential (primary) hypertension; E78.00 Pure hypercholesterolemia, unspecified; Z87.442 Personal history of urinary calculi; Z83.3 Family history of diabetes mellitus; Z82.49 Family history of ischemic heart disease and other diseases of the circulatory system; E78.5 Hyperlipidemia, unspecified; Z91.19 Patient's noncompliance with other medical treatment and regimen; E11.40 Type 2 diabetes mellitus with diabetic neuropathy, unspecified; Z79.4 Long term (current) use of insulin; Z20.822 Contact with and (suspected) exposure to COVID-19
CPT/HCPCS: 70450; 80048; 80053; 81001; 81005; 82570; 82805; 82962; 83605; 83930; 83935; 84300; 84484; 85025; 87040; 93005; 99285; J1644; J1815; J2270; J2405; J7030; J7120

== ENCOUNTER 2021-05-20 11:07 | Inpatient (IN) | payer OTHER ==
[~2021-05-20] VITALS: Ht 154.9 cm; Wt 129.0 kg
[~2021-05-20 11:07] MED LIST changes: -CEPH500C3 PO
[2021-05-20] MEDS ORDERED: SODIUM CHLORIDE 0.9% 1,000 ML IV ONE ×2 (12:15→14:15)
[2021-05-20] MEDS ORDERED: ONDANSETRON HCL 4 MG/2 ML VIAL IVP ONE (12:15)
[2021-05-20 12:42] LABS: BASOPHILS % (AUTO) 0.5 % (0.0-2.0); EOSINOPHILS % (AUTO) 0.4 % (1.0-6.0); HEMATOCRIT 46.4 % (36-46); HEMOGLOBIN 15.5 g/dL (12.0-16.0); LYMPHOCYTES # (AUTO) 1.9 K/uL (1.0-4.8); MEAN CORPUSCULAR HEMOGLOBIN 28.8 pg (26.0-34.0); MEAN CORPUSCULAR HGB CONC 33.5 G/dL (31.0-37.0); MEAN CORPUSCULAR VOLUME 86 fL (80-100); MONOCYTES # (AUTO) 0.7 K/uL (0.1-1.0); MONOCYTES % (AUTO) 8.2 % (2.0-9.0); NEUTROPHILS # (AUTO) 5.8 K/uL (1.8-7.7); NEUTROPHILS % (AUTO) 67.9 % (40.0-70.0); PLATELET COUNT (AUTO) 305 K/uL (150-450); RED CELL DISTRIBUTION WIDTH 16.8 % (11.5-14.5)
[2021-05-20] MEDS ORDERED: HYDROmorphone 2 MG/ML VIAL IVP ONE (12:45)
[2021-05-20 12:49] LABS: CALCIUM, TOTAL 10.4 mg/dL (8.8-10.5); CREATININE 0.98 mg/dL (0.60-1.30)
[2021-05-20 12:55] LABS: ALBUMIN 2.7 g/dL (3.4-5.0); BILIRUBIN,TOTAL 0.5 mg/dL (0.1-1.0); TOTAL PROTEIN, SERUM 7.8 g/dL (6.4-8.2)
[2021-05-20] MEDS ORDERED: IOHEXOL 350 MG/ML 150 ML VIAL ONE (13:10)
[2021-05-20] MEDS ORDERED: SODIUM CHLORIDE 0.9% 100 ML ONE (13:10)
[2021-05-20] MEDS ORDERED: 0.9% SODIUM CHLORIDE 10 ML SYRINGE IVP PRN (14:15)
[2021-05-20] MEDS ORDERED: ONDANSETRON HCL 4 MG/2 ML VIAL IVP PRN ×2 (14:15→19:00)
[2021-05-20] MEDS ORDERED: INSULIN REGULAR, HUMAN 100 UNITS/ML IVP ONE (14:15)
[2021-05-20] MEDS ORDERED: ACETAMINOPHEN 325 MG TABLET PO PRN ×2 (14:15→19:00)
[2021-05-20] MEDS ORDERED: HYDROmorphone 2 MG/ML VIAL IVP PRN (14:15)
[2021-05-20 15:23] LABS: COVID AG,FIA SOURCE NASOPHARYNGEAL
[2021-05-20 15:51] LABS: GLUCOMETER DEV NAME(LOC) ERT.5; GLUCOSE,POINT OF CARE 297 MG/DL (70-110)
[2021-05-20 17:38] LABS: APPEARANCE,URINE CLEAR (CLEAR); GLUCOSE, URINE (UA) >=1000 mg/dL (NEGATIVE); KETONES,URINE >=80 mg/dL (NEGATIVE); LEUKOCYTE ESTERASE ,URINE TRACE (NEGATIVE); NITRATE,URINE NEGATIVE (NEGATIVE); OCCULT BLOOD,URINE TRACE (NEGATIVE); PH,URINE 5.5 (5.0-8.0); PROTEIN,URINE POS 1+ (NEGATIVE); UROBILINOGEN,URINE 0.2 mg/dL (<=1.0)
[2021-05-20 17:41] LABS: BILIRUBIN,URINE PRELIM. POSITIVE (NEGATIVE)
[2021-05-20 18:23] LABS: SQUAMOUS EPITHELIAL CELL,UR Few /LPF (None Seen)
[2021-05-20 18:24] LABS: RBC,URINE 0-2 /HPF (0-2)
[2021-05-20 18:25] LABS: BACTERIA,URINE Few /HPF (None Seen)
[2021-05-20] MEDS ORDERED: ZOLPIDEM TARTRATE 5 MG TABLET PO PRN (19:00)
[2021-05-20] MEDS ORDERED: ALBUTEROL SULFATE 2.5 MG/0.5 ML NEB SOLUTION NEB PRN (19:00)
[2021-05-20] MEDS ORDERED: IPRATROPIUM BROMIDE 0.5 MG/2.5 ML NEB SOLUTION NEB PRN (19:00)
[2021-05-20] MEDS ORDERED: DEXTROSE 50%-WATER 25 GM/50 ML SYRINGE IVP PRN (19:00)
[2021-05-20] MEDS ORDERED: BISACODYL 10 MG RECTAL RECTAL SUPPOSITORY PR PRN (19:00)
[2021-05-20] MEDS ORDERED: MORPHINE SULFATE 2 MG/ML SYRINGE IVP PRN (19:00)
[2021-05-20] MEDS ORDERED: MAGNESIUM HYDROXIDE SUSPENSION 30 ML UDCUP PO PRN (19:00)
[2021-05-20] MEDS ORDERED: DOCU250C15 PO (19:09)
[2021-05-20] MEDS ORDERED: SUMA25TA9 PO (19:09)
[2021-05-20] MEDS ORDERED: ACET-66 PO (19:09)
[2021-05-20] MEDS ORDERED: FURO40TA5 PO (19:09)
[2021-05-20] MEDS ORDERED: OMEP20CA12 PO (19:09)
[2021-05-20] MEDS ORDERED: OMEG10005 PO (19:09)
[2021-05-20] MEDS ORDERED: METF-446 PO (19:09)
[2021-05-20] MEDS ORDERED: AMLO5TAB66 PO (19:09)
[2021-05-20] MEDS ORDERED: GLIM4 PO (19:09)
[2021-05-20] MEDS ORDERED: DULA1.5P SQ (19:09)
[2021-05-20] MEDS ORDERED: LIDO5CRE18 TP (19:09)
[2021-05-20] MEDS ORDERED: CLOB15CR41 TP (19:09)
[2021-05-20] MEDS ORDERED: METOCLOPRAMIDE HCL 5 MG TABLET PO SCH (21:00)
[2021-05-20] MEDS: DEXTROSE 5%-0.45% SODIUM CHL 1,000 ML IV SCH (21:12)
[2021-05-20] MEDS: DOCUSATE SODIUM 100 MG CAPSULE PO SCH (21:13)
[2021-05-20] MEDS: ATORVASTATIN CALCIUM 40 MG TABLET PO SCH (21:13)
[2021-05-20] MEDS: GABAPENTIN 400 MG CAPSULE PO SCH (21:30)
[2021-05-21] VITALS (7 sets, daily range): BP systolic 90–154; BP diastolic 51–103
[2021-05-21] MEDS: HEPARIN SODIUM,PORCINE 5,000 UNITS/ML VIAL SQ SCH ×3 (00:53→17:29)
[2021-05-21 04:39] LABS: BASOPHILS % (AUTO) 0.4 % (0.0-2.0); EOSINOPHILS % (AUTO) 0.6 % (1.0-6.0); HEMATOCRIT 43.3 % (36-46); HEMOGLOBIN 14.4 g/dL (12.0-16.0); LYMPHOCYTES # (AUTO) 1.6 K/uL (1.0-4.8); LYMPHOCYTES % (AUTO) 26.4 % (22.0-44.0); MEAN CORPUSCULAR HEMOGLOBIN 29.1 pg (26.0-34.0); MEAN CORPUSCULAR HGB CONC 33.4 G/dL (31.0-37.0); MEAN CORPUSCULAR VOLUME 87 fL (80-100); MONOCYTES # (AUTO) 0.6 K/uL (0.1-1.0); MONOCYTES % (AUTO) 9.6 % (2.0-9.0); NEUTROPHILS # (AUTO) 3.9 K/uL (1.8-7.7); PLATELET COUNT (AUTO) 260 K/uL (150-450); RED BLOOD CELL COUNT(AUTO) 4.97 MIL/uL (4.00-5.20); RED CELL DISTRIBUTION WIDTH 17.2 % (11.5-14.5)
[2021-05-21 04:53] LABS: ALANINE AMINOTRANSFERASE 58 U/L (12-78); ALBUMIN 2.2 g/dL (3.4-5.0); ALKALINE PHOSPHATASE 196 U/L (46-116); AMYLASE 61 U/L (25-115); ANION GAP 13 mmol/L (8-16); ASPARTATE AMINOTRANSFERASE 21 U/L (15-37); BILIRUBIN,TOTAL 0.5 mg/dL (0.1-1.0); CALCIUM, TOTAL 9.1 mg/dL (8.8-10.5); CARBON DIOXIDE 25 mmol/L (22-29); CHLORIDE 100 mmol/L (98-107); CREATININE 0.84 mg/dL (0.60-1.30); GLOMERULAR FILTR. RATE CALC > 60 mL/min (>60); GLUCOSE,RANDOM 364 mg/dL (70-110); LIPASE 433 U/L (73-393); POTASSIUM 4.4 mmol/L (3.5-5.1); SODIUM SERUM 138 mmol/L (136-145); TOTAL PROTEIN, SERUM 6.6 g/dL (6.4-8.2); UREA NITROGEN, BLOOD 14 mg/dL (7-18)
[2021-05-21] MEDS: OxyCODONE HCL/ACETAMINOPHEN 5-325 MG TABLET PO PRN ×2 (04:55→13:31)
[2021-05-21] MEDS: DEXTROSE 5%-0.45% SODIUM CHL 1,000 ML IV SCH ×3 (04:55→19:58)
[2021-05-21] MEDS: DOCUSATE SODIUM 100 MG CAPSULE PO SCH ×2 (09:27→21:00)
[2021-05-21] MEDS: PANTOPRAZOLE SODIUM 40 MG/VIAL IVP SCH (09:27)
[2021-05-21] MEDS: GABAPENTIN 400 MG CAPSULE PO SCH ×3 (09:27→20:51)
[2021-05-21] MEDS: METOCLOPRAMIDE HCL 5 MG TABLET PO SCH ×3 (09:27→20:51)
[2021-05-21] MEDS: LISINOPRIL 20 MG TABLET PO SCH (09:28)
[2021-05-21 09:50] LABS: GLUCOMETER DEV NAME(LOC) ERT.5; GLUCOSE,POINT OF CARE 296 MG/DL (70-110)
[2021-05-21] MEDS: INSULIN LISPRO 100 UNITS/ML SQ PRN ×3 (13:32→21:03)
[2021-05-21 14:53] LABS: GLUCOMETER DEV NAME(LOC) 5N.1C; GLUCOSE,POINT OF CARE 319 MG/DL (70-110)
[2021-05-21 20:04] LABS: GLUCOMETER DEV NAME(LOC) 5N.3; GLUCOSE,POINT OF CARE 306 MG/DL (70-110)
[2021-05-21] MEDS: ATORVASTATIN CALCIUM 40 MG TABLET PO SCH (20:52)
[2021-05-22 03:46] VITALS: BP 100/53
[2021-05-22] MEDS: DEXTROSE 5%-0.45% SODIUM CHL 1,000 ML IV SCH (03:49)
[2021-05-22] MEDS: INSULIN LISPRO 100 UNITS/ML SQ PRN ×2 (06:21→11:51)
[2021-05-22 06:28] LABS: BASOPHILS % (AUTO) 0.5 % (0.0-2.0); EOSINOPHILS % (AUTO) 0.4 % (1.0-6.0); HEMATOCRIT 45.2 % (36-46); HEMOGLOBIN 14.6 g/dL (12.0-16.0); LYMPHOCYTES # (AUTO) 1.4 K/uL (1.0-4.8); LYMPHOCYTES % (AUTO) 19.7 % (22.0-44.0); MEAN CORPUSCULAR HEMOGLOBIN 28.4 pg (26.0-34.0); MEAN CORPUSCULAR HGB CONC 32.2 G/dL (31.0-37.0); MEAN CORPUSCULAR VOLUME 88 fL (80-100); MONOCYTES # (AUTO) 0.8 K/uL (0.1-1.0); MONOCYTES % (AUTO) 10.7 % (2.0-9.0); NEUTROPHILS # (AUTO) 4.9 K/uL (1.8-7.7); NEUTROPHILS % (AUTO) 68.7 % (40.0-70.0); PLATELET COUNT (AUTO) 209 K/uL (150-450); RED BLOOD CELL COUNT(AUTO) 5.12 MIL/uL (4.00-5.20); RED CELL DISTRIBUTION WIDTH 17.4 % (11.5-14.5)
[2021-05-22 06:51] LABS: ALBUMIN 2.3 g/dL (3.4-5.0); BILIRUBIN,TOTAL 0.6 mg/dL (0.1-1.0); CALCIUM, TOTAL 9.4 mg/dL (8.8-10.5); CREATININE 1.01 mg/dL (0.60-1.30); POTASSIUM 4.2 mmol/L (3.5-5.1); TOTAL PROTEIN, SERUM 6.6 g/dL (6.4-8.2)
[2021-05-22 07:36] VITALS: BP 121/65
[2021-05-22] MEDS: LISINOPRIL 20 MG TABLET PO SCH (08:48)
[2021-05-22] MEDS: GABAPENTIN 400 MG CAPSULE PO SCH (08:48)
[2021-05-22] MEDS: PANTOPRAZOLE SODIUM 40 MG/VIAL IVP SCH (08:48)
[2021-05-22] MEDS: DOCUSATE SODIUM 100 MG CAPSULE PO SCH (08:49)
[2021-05-22] MEDS: METOCLOPRAMIDE HCL 5 MG TABLET PO SCH (08:49)
[2021-05-22] MEDS: HEPARIN SODIUM,PORCINE 5,000 UNITS/ML VIAL SQ SCH ×2 (08:50)
[2021-05-22] MEDS ORDERED: INSULIN GLARGINE,HUM.REC.ANLOG 100 UNITS/ML SQ SCH (10:15)
[2021-05-22 11:31] VITALS: BP 125/63
[2021-05-23 06:39] LABS: GLUCOMETER DEV NAME(LOC) 5S.1; GLUCOSE,POINT OF CARE 351 MG/DL (70-110)
[2021-05-23 06:42] LABS: GLUCOMETER DEV NAME(LOC) 5N.3; GLUCOSE,POINT OF CARE 320 MG/DL (70-110)
[2021-05-23 06:43] LABS: GLUCOMETER DEV NAME(LOC) 5N.3; GLUCOSE,POINT OF CARE 287 MG/DL (70-110)
== END 2021-05-22 13:10 | disposition home or self-care (01) | DRG 439 ==
LOC: EMS 11:09 → 6N 05-21 04:55 → AHU 05-21 09:09 → 5S 05-21 09:10
PROVIDERS: ADMIT Hospitalist; ATTEND Hospitalist
DX: K85.90 Acute pancreatitis without necrosis or infection, unspecified (principal); Z68.43 Body mass index [BMI] 50.0-59.9, adult; E66.9 Obesity, unspecified; E78.5 Hyperlipidemia, unspecified; E86.0 Dehydration; I10 Essential (primary) hypertension; K52.9 Noninfective gastroenteritis and colitis, unspecified; E11.65 Type 2 diabetes mellitus with hyperglycemia; Z20.822 Contact with and (suspected) exposure to COVID-19; E78.00 Pure hypercholesterolemia, unspecified; F17.210 Nicotine dependence, cigarettes, uncomplicated; Z82.49 Family history of ischemic heart disease and other diseases of the circulatory system; Z83.3 Family history of diabetes mellitus; Z87.442 Personal history of urinary calculi; Z90.49 Acquired absence of other specified parts of digestive tract
CPT/HCPCS: 71045; 74177; 80053; 81001; 82009; 82150; 82962; 83690; 84484; 85025; 87086; 93005; 99285; C9113; J1170; J1644; J1815; J2270; J2405; J7030; J7050; Q9967; 36415-L1; 36415-TC

== ENCOUNTER 2021-06-11 09:46 | Inpatient (IN) | payer OTHER ==
[~2021-06-11] VITALS: Ht 160 cm; Wt 111.4 kg
[~2021-06-11 09:46] MED LIST changes: +ACET-66 PO; +AMLO5TAB66 PO; +CLOB15CR41 TP; +DOCU250C15 PO; -DULA0.75 SQ; +DULA1.5P SQ; +FURO40TA5 PO; +GLIM4 PO; +LIDO5CRE18 TP; +METF-446 PO; +OMEG10005 PO; +OMEP20CA12 PO; +SUMA25TA9 PO
[2021-06-11] MEDS ORDERED: CLINDAMYCIN 900 MG/D5% WATER 50 ML IV ONE (12:30)
[2021-06-11 12:34] LABS: BASOPHILS % (AUTO) 0.3 % (0.0-2.0); EOSINOPHILS % (AUTO) 0.7 % (1.0-6.0); HEMATOCRIT 41.7 % (36-46); HEMOGLOBIN 14.1 g/dL (12.0-16.0); LYMPHOCYTES # (AUTO) 1.8 K/uL (1.0-4.8); LYMPHOCYTES % (AUTO) 21.5 % (22.0-44.0); MEAN CORPUSCULAR HEMOGLOBIN 29.2 pg (26.0-34.0); MEAN CORPUSCULAR HGB CONC 33.8 G/dL (31.0-37.0); MEAN CORPUSCULAR VOLUME 86 fL (80-100); MONOCYTES # (AUTO) 0.7 K/uL (0.1-1.0); MONOCYTES % (AUTO) 8.9 % (2.0-9.0); NEUTROPHILS # (AUTO) 5.8 K/uL (1.8-7.7); NEUTROPHILS % (AUTO) 68.6 % (40.0-70.0); PLATELET COUNT (AUTO) 299 K/uL (150-450); RED BLOOD CELL COUNT(AUTO) 4.83 MIL/uL (4.00-5.20)
[2021-06-11 12:48] LABS: CALCIUM, TOTAL 9.6 mg/dL (8.8-10.5); POTASSIUM 4.1 mmol/L (3.5-5.1)
[2021-06-11 12:54] LABS: ALBUMIN 2.5 g/dL (3.4-5.0); BILIRUBIN,TOTAL 0.4 mg/dL (0.1-1.0); TOTAL PROTEIN, SERUM 7.4 g/dL (6.4-8.2)
[2021-06-11] MEDS ORDERED: INSULIN REGULAR, HUMAN 100 UNITS/ML IVP ONE (13:15)
[2021-06-11] MEDS ORDERED: SODIUM CHLORIDE 0.9% 1,000 ML IV ONE (13:15)
[2021-06-11 13:26] LABS: GLUCOMETER DEV NAME(LOC) ERT.5; GLUCOSE,POINT OF CARE 270 MG/DL (70-110)
[2021-06-11] MEDS ORDERED: ONDANSETRON HCL 4 MG/2 ML VIAL IVP ONE (14:00)
[2021-06-11] MEDS ORDERED: MORPHINE SULFATE 4 MG/ML SYRINGE IVP ONE (14:00)
[2021-06-11 14:17] LABS: C-REACTIVE PROTEIN QUANT 10.17 mg/dL (0.00-0.30)
[2021-06-11 15:13] LABS: COVID AG,FIA SOURCE NASOPHARYNGEAL
[2021-06-11 15:20] VITALS: BP 120/72
[2021-06-11 15:26] LABS: ERYTHROCYTE SEDIMENTATION RATE 87 MM/HR (0-20)
[2021-06-11 15:36] LABS: GLUCOMETER DEV NAME(LOC) ERT.5; GLUCOSE,POINT OF CARE 206 MG/DL (70-110)
[2021-06-11 15:37] LABS: HEMOGLOBIN A1C 13.5 % (3.8-5.6)
[2021-06-11] MEDS ORDERED: 0.9% SODIUM CHLORIDE 10 ML SYRINGE IVP PRN (16:00)
[2021-06-11 16:39] VITALS: BP 115/73
[2021-06-11 16:51] VITALS: BP 115/73
[2021-06-11 17:16] LABS: GLUCOMETER DEV NAME(LOC) 6S.1; GLUCOSE,POINT OF CARE 219 MG/DL (70-110)
[2021-06-11] MEDS ORDERED: OxyCODONE HCL/ACETAMINOPHEN 5-325 MG TABLET PO PRN (18:30)
[2021-06-11] MEDS ORDERED: DEXTROSE 50%-WATER 25 GM/50 ML SYRINGE IVP PRN (18:30)
[2021-06-11] MEDS: OxyCODONE HCL/ACETAMINOPHEN 5-325 MG TABLET PO PRN (20:13)
[2021-06-11] MEDS ORDERED: ONDANSETRON HCL 4 MG/2 ML VIAL IVP PRN (20:30)
[2021-06-11] MEDS ORDERED: BISACODYL 10 MG RECTAL RECTAL SUPPOSITORY PR PRN (20:30)
[2021-06-11] MEDS ORDERED: IPRATROPIUM BROMIDE 0.5 MG/2.5 ML NEB SOLUTION NEB PRN (20:30)
[2021-06-11] MEDS ORDERED: ALBUTEROL SULFATE 2.5 MG/0.5 ML NEB SOLUTION NEB PRN (20:30)
[2021-06-11] MEDS ORDERED: ZOLPIDEM TARTRATE 5 MG TABLET PO PRN (20:30)
[2021-06-11] MEDS ORDERED: MORPHINE SULFATE 2 MG/ML SYRINGE IVP PRN (20:30)
[2021-06-11] MEDS ORDERED: MAGNESIUM HYDROXIDE SUSPENSION 30 ML UDCUP PO PRN (20:30)
[2021-06-11] MEDS ORDERED: HYDROCODONE/ACETAMINOPHEN 5-325 MG TABLET PO PRN (20:30)
[2021-06-11 20:38] VITALS: BP 125/81
[2021-06-11] MEDS ORDERED: VANCOMYCIN HCL 1.5 GM in DEXTROSE 5%-WATER 250 ML IV ONE (21:00)
[2021-06-11] MEDS ORDERED: SODIUM CHLORIDE 0.9% 500 ML IV ONE (21:39)
[2021-06-11] MEDS ORDERED: SODIUM CHLORIDE 0.9% 100 ML ONE (21:58)
[2021-06-11] MEDS ORDERED: IOHEXOL 350 MG/ML 150 ML VIAL ONE (21:58)
[2021-06-11 22:01] LABS: GLUCOMETER DEV NAME(LOC) 6N.1; GLUCOSE,POINT OF CARE 316 MG/DL (70-110)
[2021-06-11] MEDS: DOCUSATE SODIUM 100 MG CAPSULE PO SCH (22:41)
[2021-06-11] MEDS: GABAPENTIN 400 MG CAPSULE PO SCH (22:42)
[2021-06-11] MEDS: HEPARIN SODIUM,PORCINE 5,000 UNITS/ML VIAL SQ SCH (22:44)
[2021-06-11] MEDS: INSULIN LISPRO 100 UNITS/ML SQ PRN (22:54)
[2021-06-12 04:55] VITALS: BP 116/76
[2021-06-12] MEDS: ACETAMINOPHEN 325 MG TABLET PO PRN (05:23)
[2021-06-12] MEDS: INSULIN LISPRO 100 UNITS/ML SQ PRN ×4 (05:28→21:00)
[2021-06-12] MEDS ORDERED: INSULIN LISPRO 100 UNITS/ML SQ ONE (06:00)
[2021-06-12] MEDS ORDERED: DEXTROSE 50%-WATER 25 GM/50 ML SYRINGE IVP PRN (06:15)
[2021-06-12] MEDS ORDERED: OMEPRAZOLE 20 MG CAPSULE PO SCH (06:30)
[2021-06-12 06:31] LABS: BASOPHILS % (AUTO) 0.2 % (0.0-2.0); EOSINOPHILS % (AUTO) 0.6 % (1.0-6.0); HEMATOCRIT 38.4 % (36-46); LYMPHOCYTES # (AUTO) 1.3 K/uL (1.0-4.8); LYMPHOCYTES % (AUTO) 16.2 % (22.0-44.0); MEAN CORPUSCULAR HEMOGLOBIN 29.4 pg (26.0-34.0); MEAN CORPUSCULAR HGB CONC 33.7 G/dL (31.0-37.0); MEAN CORPUSCULAR VOLUME 87 fL (80-100); MONOCYTES # (AUTO) 0.7 K/uL (0.1-1.0); MONOCYTES % (AUTO) 8.5 % (2.0-9.0); NEUTROPHILS # (AUTO) 5.8 K/uL (1.8-7.7); NEUTROPHILS % (AUTO) 74.5 % (40.0-70.0); PLATELET COUNT (AUTO) 320 K/uL (150-450); RED BLOOD CELL COUNT(AUTO) 4.41 MIL/uL (4.00-5.20); RED CELL DISTRIBUTION WIDTH 16.7 % (11.5-14.5)
[2021-06-12 06:53] LABS: ALBUMIN 2.3 g/dL (3.4-5.0); BILIRUBIN,TOTAL 0.4 mg/dL (0.1-1.0); CALCIUM, TOTAL 8.5 mg/dL (8.8-10.5); CREATININE 1.15 mg/dL (0.60-1.30); POTASSIUM 4.3 mmol/L (3.5-5.1); TOTAL PROTEIN, SERUM 6.8 g/dL (6.4-8.2)
[2021-06-12] MEDS: FUROSEMIDE 40 MG TABLET PO SCH (07:39)
[2021-06-12] MEDS: PANTOPRAZOLE SODIUM 40 MG DR TABLET PO SCH (07:39)
[2021-06-12] MEDS: AmLODIPine BESYLATE 5 MG TABLET PO SCH (07:40)
[2021-06-12] MEDS: DOCUSATE SODIUM 100 MG CAPSULE PO SCH ×2 (07:40→20:51)
[2021-06-12] MEDS: GABAPENTIN 400 MG CAPSULE PO SCH ×3 (07:40→20:51)
[2021-06-12] MEDS: GLIMEPIRIDE 4 MG TABLET PO SCH (07:40)
[2021-06-12] MEDS: LISINOPRIL 20 MG TABLET PO SCH (07:40)
[2021-06-12] MEDS: HEPARIN SODIUM,PORCINE 5,000 UNITS/ML VIAL SQ SCH ×2 (07:40→16:51)
[2021-06-12] MEDS: VANCOMYCIN HCL 1.5 GM in DEXTROSE 5%-WATER 250 ML IV SCH ×2 (07:41→21:48)
[2021-06-12 07:50] VITALS: BP 105/70
[2021-06-12 08:21] LABS: GLUCOMETER DEV NAME(LOC) 6N.1; GLUCOSE,POINT OF CARE 443 MG/DL (70-110)
[2021-06-12] MEDS: OxyCODONE HCL/ACETAMINOPHEN 5-325 MG TABLET PO PRN (08:57)
[2021-06-12 11:21] LABS: GLUCOMETER DEV NAME(LOC) 6N.1; GLUCOSE,POINT OF CARE 351 MG/DL (70-110)
[2021-06-12] MEDS: INSULIN LISPRO 100 UNITS/ML SQ SCH ×2 (12:04→17:17)
[2021-06-12 15:33] VITALS: BP 113/58
[2021-06-12 17:26] LABS: GLUCOMETER DEV NAME(LOC) 6S.1; GLUCOSE,POINT OF CARE 331 MG/DL (70-110)
[2021-06-12 20:51] VITALS: BP 112/69
[2021-06-12] MEDS: ZINC SULFATE 220 MG CAPSULE PO SCH (20:51)
[2021-06-12] MEDS: ATORVASTATIN CALCIUM 40 MG TABLET PO SCH (20:52)
[2021-06-12] MEDS: INSULIN GLARGINE,HUM.REC.ANLOG 100 UNITS/ML SQ SCH (20:53)
[2021-06-12] MEDS ORDERED: INSULIN GLARGINE,HUM.REC.ANLOG 100 UNITS/ML SQ SCH (21:00)
[2021-06-13 00:30] VITALS: BP 119/73
[2021-06-13] MEDS: OxyCODONE HCL/ACETAMINOPHEN 5-325 MG TABLET PO PRN (00:37)
[2021-06-13 01:41] LABS: GLUCOMETER DEV NAME(LOC) 6N.1; GLUCOSE,POINT OF CARE 264 MG/DL (70-110)
[2021-06-13 04:57] VITALS: BP 119/77
[2021-06-13 07:06] LABS: GLUCOMETER DEV NAME(LOC) 6S.1; GLUCOSE,POINT OF CARE 301 MG/DL (70-110)
[2021-06-13 07:29] VITALS: BP 110/83
[2021-06-13] MEDS: INSULIN LISPRO 100 UNITS/ML SQ SCH ×5 (07:30→21:25)
[2021-06-13] MEDS ORDERED: RINGERS SOLUTION,LACTATED 1,000 ML IV ONE (07:59)
[2021-06-13] MEDS: GLIMEPIRIDE 4 MG TABLET PO SCH (08:00)
[2021-06-13] MEDS: HEPARIN SODIUM,PORCINE 5,000 UNITS/ML VIAL SQ SCH ×4 (08:00→23:59)
[2021-06-13 08:10] LABS: CALCIUM, TOTAL 8.9 mg/dL (8.8-10.5); CREATININE 1.12 mg/dL (0.60-1.30); POTASSIUM 4.1 mmol/L (3.5-5.1); VANCOMYCIN,RANDOM 26.7 mcg/mL (25.0-50.0)
[2021-06-13] MEDS: DOCUSATE SODIUM 100 MG CAPSULE PO SCH ×2 (09:00→20:13)
[2021-06-13] MEDS: INSULIN GLARGINE,HUM.REC.ANLOG 100 UNITS/ML SQ SCH ×2 (09:00→21:25)
[2021-06-13] MEDS: GABAPENTIN 400 MG CAPSULE PO SCH ×3 (09:00→20:14)
[2021-06-13] MEDS ORDERED: BUPIVACAINE 0.25%/EPI 1:200,000/PF 10 ML VIAL ONE (09:18)
[2021-06-13] MEDS ORDERED: SUGAMMADEX SODIUM 200 MG/2 ML VIAL IVP ONE (10:27)
[2021-06-13 11:15] VITALS: BP 161/107
[2021-06-13] MEDS ORDERED: LIDOCAINE/PF 2% 5 ML VIAL IM ONE (12:00)
[2021-06-13] MEDS ORDERED: ONDANSETRON HCL 4 MG/2 ML VIAL IVP ONE (12:00)
[2021-06-13] MEDS ORDERED: PROPOFOL 1% 20 ML VIAL IVP ONE (12:00)
[2021-06-13] MEDS ORDERED: ROCURONIUM BROMIDE 10 MG/ML 5 ML VIAL IVP ONE (12:00)
[2021-06-13] MEDS: AmLODIPine BESYLATE 5 MG TABLET PO SCH (12:06)
[2021-06-13] MEDS: MULTIVITAMINS WITH MINERALS, THERAPEUTIC TABLET PO SCH (12:06)
[2021-06-13] MEDS: ZINC SULFATE 220 MG CAPSULE PO SCH ×2 (12:06→20:13)
[2021-06-13] MEDS: LISINOPRIL 20 MG TABLET PO SCH (12:06)
[2021-06-13] MEDS: PANTOPRAZOLE SODIUM 40 MG DR TABLET PO SCH (12:06)
[2021-06-13] MEDS: FUROSEMIDE 40 MG TABLET PO SCH (12:07)
[2021-06-13] MEDS: INSULIN LISPRO 100 UNITS/ML SQ PRN ×2 (12:14→17:14)
[2021-06-13] MEDS: VANCOMYCIN HCL 1.5 GM in DEXTROSE 5%-WATER 250 ML IV SCH (12:20)
[2021-06-13 15:41] LABS: GLUCOMETER DEV NAME(LOC) 6S.1; GLUCOSE,POINT OF CARE 269 MG/DL (70-110)
[2021-06-13 16:00] VITALS: BP 126/81
[2021-06-13] MEDS: ACETAMINOPHEN 325 MG TABLET PO PRN (16:36)
[2021-06-13 17:27] LABS: GLUCOMETER DEV NAME(LOC) 6S.1; GLUCOSE,POINT OF CARE 388 MG/DL (70-110)
[2021-06-13 19:53] VITALS: BP 100/54
[2021-06-13] MEDS: ATORVASTATIN CALCIUM 40 MG TABLET PO SCH (20:13)
[2021-06-13] MEDS: VANCOMYCIN HCL 1 GM/D5% WATER 200 ML IV SCH (20:21)
[2021-06-13 22:46] LABS: GLUCOMETER DEV NAME(LOC) 6N.1; GLUCOSE,POINT OF CARE 368 MG/DL (70-110)
[2021-06-14 05:37] LABS: GLUCOMETER DEV NAME(LOC) SDS.; GLUCOSE,POINT OF CARE 288 MG/DL (70-110)
[2021-06-14] MEDS: INSULIN LISPRO 100 UNITS/ML SQ SCH ×2 (05:37→17:29)
[2021-06-14 05:45] VITALS: BP 100/56
[2021-06-14 06:26] LABS: GLUCOMETER DEV NAME(LOC) 6S.1; GLUCOSE,POINT OF CARE 369 MG/DL (70-110)
[2021-06-14] MEDS: VANCOMYCIN HCL 1 GM/D5% WATER 200 ML IV SCH ×2 (07:49→20:10)
[2021-06-14] MEDS: GLIMEPIRIDE 4 MG TABLET PO SCH (08:00)
[2021-06-14 09:12] VITALS: BP 126/55
[2021-06-14] MEDS: DOCUSATE SODIUM 100 MG CAPSULE PO SCH ×2 (09:24→20:36)
[2021-06-14] MEDS: HEPARIN SODIUM,PORCINE 5,000 UNITS/ML VIAL SQ SCH ×3 (09:24→23:46)
[2021-06-14] MEDS: MULTIVITAMINS WITH MINERALS, THERAPEUTIC TABLET PO SCH (09:24)
[2021-06-14] MEDS: PANTOPRAZOLE SODIUM 40 MG DR TABLET PO SCH (09:24)
[2021-06-14] MEDS: FUROSEMIDE 40 MG TABLET PO SCH (09:25)
[2021-06-14] MEDS: AmLODIPine BESYLATE 5 MG TABLET PO SCH (09:25)
[2021-06-14] MEDS: LISINOPRIL 20 MG TABLET PO SCH (09:25)
[2021-06-14] MEDS: GABAPENTIN 400 MG CAPSULE PO SCH ×3 (09:26→20:36)
[2021-06-14] MEDS: ZINC SULFATE 220 MG CAPSULE PO SCH ×2 (09:26→20:36)
[2021-06-14] MEDS: INSULIN GLARGINE,HUM.REC.ANLOG 100 UNITS/ML SQ SCH ×2 (09:32→20:38)
[2021-06-14] MEDS: ACETAMINOPHEN 325 MG TABLET PO PRN (10:37)
[2021-06-14] MEDS: INSULIN LISPRO 100 UNITS/ML SQ PRN ×3 (12:38→20:40)
[2021-06-14 16:24] VITALS: BP 118/61
[2021-06-14] MEDS: PIPERACILLIN/TAZO 3.375 GM/D5W 50 ML IV SCH ×2 (16:41→22:06)
[2021-06-14 19:52] VITALS: BP 101/60
[2021-06-14] MEDS: ATORVASTATIN CALCIUM 40 MG TABLET PO SCH (20:36)
[2021-06-14 23:41] LABS: GLUCOMETER DEV NAME(LOC) 6S.1; GLUCOSE,POINT OF CARE 314 MG/DL (70-110)
[2021-06-14 23:41] LABS: GLUCOMETER DEV NAME(LOC) 6S.1; GLUCOSE,POINT OF CARE 303 MG/DL (70-110)
[2021-06-14 23:41] LABS: GLUCOMETER DEV NAME(LOC) 6S.1; GLUCOSE,POINT OF CARE 291 MG/DL (70-110)
[2021-06-14 23:41] LABS: GLUCOMETER DEV NAME(LOC) 6S.1; GLUCOSE,POINT OF CARE 365 MG/DL (70-110)
[2021-06-15] MEDS: PIPERACILLIN/TAZO 3.375 GM/D5W 50 ML IV SCH ×3 (03:49→16:15)
[2021-06-15 04:25] VITALS: BP 115/78
[2021-06-15] MEDS: OxyCODONE HCL/ACETAMINOPHEN 5-325 MG TABLET PO PRN (05:56)
[2021-06-15] MEDS: INSULIN LISPRO 100 UNITS/ML SQ PRN ×2 (05:58→12:10)
[2021-06-15] MEDS: VANCOMYCIN HCL 1 GM/D5% WATER 200 ML IV SCH (07:21)
[2021-06-15 07:26] LABS: GLUCOMETER DEV NAME(LOC) 6N.1; GLUCOSE,POINT OF CARE 308 MG/DL (70-110)
[2021-06-15 07:32] VITALS: BP 116/65
[2021-06-15] MEDS: AmLODIPine BESYLATE 5 MG TABLET PO SCH (08:20)
[2021-06-15] MEDS: MULTIVITAMINS WITH MINERALS, THERAPEUTIC TABLET PO SCH (08:21)
[2021-06-15] MEDS: FUROSEMIDE 40 MG TABLET PO SCH (08:21)
[2021-06-15] MEDS: LISINOPRIL 20 MG TABLET PO SCH (08:21)
[2021-06-15] MEDS: PANTOPRAZOLE SODIUM 40 MG DR TABLET PO SCH (08:21)
[2021-06-15] MEDS: GLIMEPIRIDE 4 MG TABLET PO SCH (08:21)
[2021-06-15] MEDS: GABAPENTIN 400 MG CAPSULE PO SCH ×2 (08:21→16:15)
[2021-06-15] MEDS: DOCUSATE SODIUM 100 MG CAPSULE PO SCH (08:21)
[2021-06-15] MEDS: ZINC SULFATE 220 MG CAPSULE PO SCH (08:21)
[2021-06-15] MEDS: HEPARIN SODIUM,PORCINE 5,000 UNITS/ML VIAL SQ SCH ×2 (08:22→16:15)
[2021-06-15] MEDS: INSULIN LISPRO 100 UNITS/ML SQ SCH ×2 (08:23→12:10)
[2021-06-15] MEDS: INSULIN GLARGINE,HUM.REC.ANLOG 100 UNITS/ML SQ SCH (08:33)
[2021-06-15 09:46] LABS: CALCIUM, TOTAL 9.2 mg/dL (8.8-10.5); CREATININE 1.19 mg/dL (0.60-1.30); POTASSIUM 4.7 mmol/L (3.5-5.1); VANCOMYCIN,RANDOM 44.6 mcg/mL (25.0-50.0)
[2021-06-15] MEDS ORDERED: LEVO750T68 PO (15:03)
[2021-06-15 15:54] VITALS: BP 112/85
[2021-06-15 16:11] LABS: GLUCOMETER DEV NAME(LOC) 6N.1; GLUCOSE,POINT OF CARE 262 MG/DL (70-110)
[2021-06-15 17:22] LABS: GLUCOMETER DEV NAME(LOC) 6S.1; GLUCOSE,POINT OF CARE 281 MG/DL (70-110)
== END 2021-06-15 17:41 | disposition home or self-care (01) | DRG 602 ==
LOC: EMS 09:50 → 6N 14:40
PROVIDERS: ADMIT Hospitalist; ATTEND Hospitalist
PROC: 0J9C30Z Drainage of Pelvic Region Subcutaneous Tissue and Fascia with Drainage Device, Percutaneous Approach (ICD-10-PCS; principal; 2021-06-13 10:00)
DX: L02.214 Cutaneous abscess of groin (principal); E43 Unspecified severe protein-calorie malnutrition; Z68.41 Body mass index [BMI] 40.0-44.9, adult; I10 Essential (primary) hypertension; E78.5 Hyperlipidemia, unspecified; L03.314 Cellulitis of groin; E66.01 Morbid (severe) obesity due to excess calories; Z20.822 Contact with and (suspected) exposure to COVID-19; E11.65 Type 2 diabetes mellitus with hyperglycemia; Z82.49 Family history of ischemic heart disease and other diseases of the circulatory system; Z83.3 Family history of diabetes mellitus; Z87.442 Personal history of urinary calculi; Z87.891 Personal history of nicotine dependence; Z90.49 Acquired absence of other specified parts of digestive tract
CPT/HCPCS: 74177; 80048; 80053; 80202; 82962; 83036; 85025; 85651; 86140; 87040; 87070; 87081; 99285; J0690; J1644; J1815; J2270; J2405; J2543; J2704; J3370; J3490; J7030; J7040; J7050; J7060; J7120; Q9967